=== PATIENT | male | born 1975 | race Caucasian/White ===

== ENCOUNTER 2022-11-03 17:26 | Emergency (ER) | payer MEDICAID, OTHER ==
[~2022-11-03] VITALS: Ht 160 cm; Wt 98.0 kg
[2022-11-03 17:34] VITALS: BP 124/87
[2022-11-03] MEDS ORDERED: LIDOCAINE HCL 1% 20ML VIAL (Pyxis) INJ INFIL ONE (20:15)
[2022-11-03] MEDS ORDERED: CEFTRIAXONE SODIUM 500 MG/VIAL IM ONE (20:15)
[2022-11-03 21:27] LABS: CLARITY URINE CLEAR (CLEAR); COLOR URINE YELLOW (YELLOW); KETONES URINE NEGATIVE (NEGATIVE); LEUKOCYTE ESTERASE URINE TRACE (NEGATIVE); NITRITE URINE NEGATIVE (NEGATIVE); OCCULT BLOOD URINE 2+ (NEGATIVE); PH URINE 5.5 (4.5-8.0); PROTEIN URINE NEGATIVE (NEGATIVE); SPECIFIC GRAVITY URINE 1.009 (1.005-1.030); UROBILINOGEN URINE 0.2 E.U./dL (0.2-1.0)
[2022-11-03] MEDS ORDERED: DOXY100C5 MT (21:44)
[2022-11-03] MEDS ORDERED: CIPR-263 MT (21:44)
[2022-11-03] MEDS ORDERED: IBUP-2028 MT (21:46)
[2022-11-07 04:08] LABS: NEISSERIA GONORRHOEAE NAA Negative (Negative)
== END 2022-11-03 22:08 | disposition home or self-care (01) ==
LOC: ER 17:58
DX: R30.0 Dysuria (principal); F41.9 Anxiety disorder, unspecified
CPT/HCPCS: 81003; 87491; 87591; 96372; 99283; J0696; J3490